=== PATIENT | female | born 1960 | race Two or more races ===

== ENCOUNTER 2018-08-14 18:28 | Emergency (ER) | payer SELFPAY ==
[~2018-08-14] VITALS: Ht 162.6 cm; Wt 61.7 kg
[2018-08-14] MEDS ORDERED: RANI150T8 PO (18:43)
--- NOTE | 2018-08-14 19:04 | NUR ---
[facility] REPORT TO REX PARSONS
--- NOTE | 2018-08-14 20:40 | NUR ---
Patient discharged to home in stable conditon. Written and verbal after care instructions given. Patient and verbalizes understanding of instructions.
[2018-08-14 20:44] VITALS: BP 135/71
== END 2018-08-14 20:48 | disposition home or self-care (01) ==
LOC: ER 18:30
DX: S06.0X0A Concussion without loss of consciousness, initial encounter (principal); Z88.0 Allergy status to penicillin; Z88.8 Allergy status to other drugs, medicaments and biological substances; Z79.899 Other long term (current) drug therapy; W22.8XXA Striking against or struck by other objects, initial encounter; Y93.89 Activity, other specified; Y92.89 Other specified places as the place of occurrence of the external cause; Y99.8 Other external cause status
CPT/HCPCS: 70450; 72125; A4663